=== PATIENT | male | born 1975 | race Caucasian/White ===

== ENCOUNTER 2022-03-05 14:07 | Emergency (ER) | payer SELFPAY ==
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
[2022-03-05 14:27] VITALS: BP 130/78; PULSE 90; RESP 18; O2SAT 98; BMI 25.0
[2022-03-05 15:46] VITALS: BP 107/66; PULSE 84; RESP 18; TEMP 37.1; O2SAT 96
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
== END 2022-03-05 17:08 | disposition home or self-care (01) ==
PROVIDERS: Emergency Provider Emergency Medicine
DX: Z04.1 Encounter for examination and observation following transport accident (principal); F19.10 Other psychoactive substance abuse, uncomplicated
CPT/HCPCS: 70450; 99284